=== PATIENT | male | born 1955 | race Caucasian/White ===

== ENCOUNTER 2016-08-27 10:37 | Observation (INO) ==
[2016-08-27] MEDS ORDERED: Aspirin 81 MG TAB.CHEW PO ONE (10:38)
--- NOTE | 2016-08-27 10:39 | Emergency Department Note ---
Disposition Clinical Impression: Chest pain Disposition: Admitted As Inpatient General Adult [facility] - General Chief complaint: ED Chest Pain Stated complaint: chest pressure Time Seen by Provider: 08/27/16 10:38 - Related Data Home Medications Medication Instructions Recorded Confirmed Ibuprofen [Motrin] 400 mg PO BID 08/27/16 08/27/16 Previous Rx's Medication Instructions Recorded Lisinopril [Zestril] 10 mg PO DAILY #30 tablet 08/28/16 Allergies Allergy/AdvReac Type Severity Reaction Status Date / Time No Known Allergies Allergy Verified 04/16/15 10:50 Past Medical History - Past Medical History Medical history: Reports: no medical history - Social History Smoking Status: Former smoker Smokeless Tobacco Status: Yes Alcohol use: Reports: occasionally Drug use: Reports: none Course Vital Signs Temperature 97.9 F 08/27/16 10:38 Pulse Rate 64 08/27/16 10:38 Respiratory Rate 20 08/27/16 10:38 Blood Pressure 187/91 08/27/16 10:38 O2 Sat by Pulse Oximetry 100 08/27/16 10:38 Temperature 97.9 F 08/28/16 14:37 Pulse Rate 76 08/28/16 14:37 Respiratory Rate 14 08/28/16 14:37 Blood Pressure 133/81 08/28/16 14:37 O2 Sat by Pulse Oximetry 94 L 08/28/16 14:37 Oxygen Delivery Oxygen Delivery Nasal Cannula Medical Decision Making - Lab Data Result diagrams: 08/27/16 10:46 08/27/16 10:46 Lab Results 08/27/16 08/27/16 08/27/16 Range/Units 10:46 10:46 10:46 WBC 3.6 L (4.3-11.1) K/mcL RBC 5.06 (4.19-5.50) M/mcL Hgb 15.8 (12.9-16.9) g/dL Hct 46.2 (37.5-50.1) % MCV 91.3 (83.0-100.0) fL MCH 31.2 (28.0-33.3) pg MCHC 34.2 (31.6-35.5) g/dL RDW 12.3 (11.5-14.5) % Plt Count 179 (140-400) K/mcL MPV 9.1 L (9.4-12.4) fL Immature Gran % 0.3 (0-4) % Seg Neutrophils % 56.5 % Lymphocytes % 30.3 % Monocytes % 11.5 % Eosinophils % 1.1 % Basophils % 0.3 % Neutrophils # 2.0 (1.6-8.9) K/mcL Lymphocytes # 1.1 (0.6-4.6) K/mcL Monocytes # 0.4 (0.0-1.3) K/mcL Eosinophils # 0.0 (0.0-0.6) K/mcL Basophils # 0.0 (0.0-0.2) K/mcL Immature Plt Fraction 3.4 (1.1-6.1) % PT 11.1 (9.4-12.1) Seconds INR 1.0 APTT 29.5 (26.0-36.0) Seconds D-Dimer 288 (0-500) ng/mLFEU Sodium 139 (136-145) mEq/L Potassium 3.9 (3.5-4.5) mEq/L Chloride 104 (98-109) mEq/L Carbon Dioxide 26 (19-29) mEq/L BUN 9 (8-26) mg/dL Creatinine 0.89 (0.72-1.25) mg/dL Est GFR ( Amer) > 60 (> 60) Est GFR (Non-Af Amer) > 60 (> 60) BUN/Creatinine Ratio 10 (6-26) Glucose 120 H (70-99) mg/dL Calculated Osmolality 288 (280-300) Calcium 9.7 (8.6-10.8) mg/dL Total Bilirubin 0.5 (0.2-1.2) mg/dL Direct Bilirubin 0.2 (0.0-0.5) mg/dL Indirect Bilirubin 0.3 (0.0-1.2) mg/dL AST 23 (5-34) Units/L ALT 19 (0-55) Units/L Alkaline Phosphatase 54 (38-126) Units/L Troponin I (0-0.03) ng/mL Serum Total Protein 7.6 (6.0-8.3) g/dL Albumin 4.0 (3.5-5.0) g/dL Globulin 3.6 H (2.4-3.5) g/dL Albumin/Globulin Ratio 1.1 (1.1-2.2) 08/27/16 Range/Units 10:46 WBC (4.3-11.1) K/mcL RBC (4.19-5.50) M/mcL Hgb (12.9-16.9) g/dL Hct (37.5-50.1) % MCV (83.0-100.0) fL MCH (28.0-33.3) pg MCHC (31.6-35.5) g/dL RDW (11.5-14.5) % Plt Count (140-400) K/mcL MPV (9.4-12.4) fL Immature Gran % (0-4) % Seg Neutrophils % % Lymphocytes % % Monocytes % % Eosinophils % % Basophils % % Neutrophils # (1.6-8.9) K/mcL Lymphocytes # (0.6-4.6) K/mcL Monocytes # (0.0-1.3) K/mcL Eosinophils # (0.0-0.6) K/mcL Basophils # (0.0-0.2) K/mcL Immature Plt Fraction (1.1-6.1) % PT (9.4-12.1) Seconds INR APTT (26.0-36.0) Seconds D-Dimer (0-500) ng/mLFEU Sodium (136-145) mEq/L Potassium (3.5-4.5) mEq/L Chloride (98-109) mEq/L Carbon Dioxide (19-29) mEq/L BUN (8-26) mg/dL Creatinine (0.72-1.25) mg/dL Est GFR ( Amer) (> 60) Est GFR (Non-Af Amer) (> 60) BUN/Creatinine Ratio (6-26) Glucose (70-99) mg/dL Calculated Osmolality (280-300) Calcium (8.6-10.8) mg/dL Total Bilirubin (0.2-1.2) mg/dL Direct Bilirubin (0.0-0.5) mg/dL Indirect Bilirubin (0.0-1.2) mg/dL AST (5-34) Units/L ALT (0-55) Units/L Alkaline Phosphatase (38-126) Units/L Troponin I 0.01 (0-0.03) ng/mL Serum Total Protein (6.0-8.3) g/dL Albumin (3.5-5.0) g/dL Globulin (2.4-3.5) g/dL Albumin/Globulin Ratio (1.1-2.2) Attestation Statement - Attestation Attestation: I examined this patient and my medical decision-making was reviewed with the [employer] MACHINE SET UP OPERATOR/PA/Advanced Practice Nurse/Resident Physician. I agree with the documented findings, disposition and treatment plan as described except to the extent set forth below. Face to face time provided Patient presents via EMS with reports of chest discomfort. Similar episode experienced 3 days ago which resolved. No previous history of coronary artery disease. Comfortable appearing on exam.
[2016-08-27] MEDS ORDERED: Nitroglycerin 0.4 MG TAB.SUBL SL PRN (10:43)
[2016-08-27 10:53] LABS: Basophils % 0.3 %; Eosinophils % 1.1 %; Hematocrit 46.2 % (37.5-50.1); Hemoglobin 15.8 g/dL (12.9-16.9); Immature Granulocytes % 0.3 % (0-4); Immature Platelets 3.4 % (1.1-6.1); Lymphocytes # 1.1 K/mcL (0.6-4.6); Lymphocytes % 30.3 %; Mean Corpuscular HGB Conc 34.2 g/dL (31.6-35.5); Mean Corpuscular Hemoglobin 31.2 pg (28.0-33.3); Mean Corpuscular Volume 91.3 fL (83.0-100.0); Mean Platelet Volume 9.1 fL (9.4-12.4); Monocytes # 0.4 K/mcL (0.0-1.3); Monocytes % 11.5 %; Platelet Count 179 K/mcL (140-400); Red Blood Count 5.06 M/mcL (4.19-5.50); Red Cell Distribution Width 12.3 % (11.5-14.5); Segmented Neutrophils % 56.5 %
--- NOTE | 2016-08-27 10:55 | Emergency Department Note ---
Disposition Clinical Impression: Chest pain Qualifiers: Chest pain type: unspecified Qualified Code(s): R07.9 - Chest pain, unspecified Disposition: Admitted As Inpatient Condition: Good Referrals: NO,PCP [Primary Care Provider] - Forms: ED Satisfaction Letter Time of Disposition: 12:44 Chest Pain HPI - General Chief Complaint: ED Chest Pain Stated Complaint: chest pressure Time Seen by Provider: 08/27/16 10:38 Source: patient, EMS Mode of arrival: ambulatory Limitations: no limitations Vital Signs Reviewed: Yes Nursing Notes Reviewed: Yes - History of Present Illness HPI Narrative: patient is a 61-year-old male with past medical histor of anxiety. hepresents today due to jolanta pain impression. Patient states that he has had one episode of chest pain on Thursday that went away without any mediation. Today, he was setting up home just prior to arrival about one hourprior to [facility]he began having left-sided pressurein the chest, radiation of the pain and numbness radiating to his left arm. He is also having some mild shortness of breath. Denies any nausea, vomiting, fevers, diarrhea, abdominal pain. He does admit to sweating. Currently rates his pain 4/10. Severity scale (1-10): 4 - Related Data Home Medications Medication Instructions Recorded Confirmed Ibuprofen [Motrin] 400 mg PO BID 08/27/16 08/27/16 Allergies Allergy/AdvReac Type Severity Reaction Status Date / Time No Known Allergies Allergy Verified 04/16/15 10:50 Constitutional: Denies: fever Eyes: Denies: eye pain ENT ED: Denies: ear pain Cardiovascular: Reports: chest pain Respiratory: Reports: dyspnea. Denies: cough, wheezes Gastrointestinal: Denies: abdominal pain, nausea, vomiting, diarrhea Genitourinary: Denies: urgency, dysuria Musculoskeletal: Denies: back pain Integumentary: Denies: rash Neurological: Denies: headache Psychiatric: Denies: anxiety Chest Pain PMH - Past Medical History Medical history: Reports: no medical history - Social History Smoking Status: Former smoker Alcohol use: Reports: occasionally Drug use: Reports: none Physical Exam - General Limitations: no limitations General appearance: alert - Head Head exam: atraumatic, normocephalic, normal inspection - Eye Eye exam: Present: normal appearance, PERRL, EOMI - ENT ENT exam: normal exam, normal oropharynx, mucous membranes moist - Neck Neck exam: Present: normal inspection, full ROM, trachea midline - Chest Chest inspection: Present: normal inspection, symmetric chest wall rise - Respiratory Respiratory exam: Present: normal lung sounds bilaterally - Cardiovascular Cardiovascular exam: Present: regular rate, normal rhythm, normal heart sounds - Abdominal Exam Abdominal exam: Present: soft, Non-Tender. Absent: tenderness, distention, guarding, rebound, rigidity - Extremities Exam Extremities exam: Present: normal inspection, full ROM. Absent: tenderness, pedal edema - Back Exam Back exam: Present: normal inspection, full ROM. Absent: tenderness - Neurological Exam Neurological exam: Present: alert, oriented X3 - Psychiatric Psychiatric exam: Present: normal affect, normal mood - Skin Skin exam: Present: warm, dry, intact, normal color Course Course Narrative: Hypertensive on presentation, otherwise, the rest of the vitals were within normal limits. EKG shows NSR with RBBB. WIll obtain CXR, bloodwork, trop. Patient got aspirin 325mg in squad. Will give nitro for pain. 11:35 patient has received 2 nitroglycerin and is still having chest pain. Patient was also shaking and stated he was very anxious. Patient will be given Ativan for anxiety. Bloodwork was not concerning, troponin negative. EKG showed right bundle leandro block but no acute ST changes. The patient is still having chest pain, we will consider admission for chest pain rule out. Vital Signs Temperature 97.9 F 08/27/16 10:38 Pulse Rate 64 08/27/16 10:38 Respiratory Rate 20 08/27/16 10:38 Blood Pressure 187/91 08/27/16 10:38 O2 Sat by Pulse Oximetry 100 08/27/16 10:38 Temperature 97.9 F 08/27/16 10:38 Pulse Rate 72 08/27/16 11:46 Respiratory Rate 18 08/27/16 11:46 Blood Pressure 157/78 08/27/16 11:46 O2 Sat by Pulse Oximetry 96 08/27/16 11:46 Oxygen Delivery Oxygen Delivery Nasal Cannula Chest Pain - MDM Narrative Medical decision making narrative: Hypertensive on presentation, otherwise, the rest of the vitals were within normal limits. EKG shows NSR with RBBB. WIll obtain CXR, bloodwork, trop. Patient got aspirin 325mg in squad. Will give nitro for pain. 11:35 patient has received 2 nitroglycerin and is still having chest pain. Patient was also shaking and stated he was very anxious. Patient will be given Ativan for anxiety. Bloodwork was not concerning, troponin negative. EKG showed right bundle leandro block but no acute ST changes. The patient is still having chest pain, we will consider admission for chest pain rule out - Medical Records Medical records reviewed: Yes I reviewed the patient's medical records. - Lab Data Lab results reviewed: Yes I reviewed the patient's lab results. Result diagrams: 08/27/16 10:46 08/27/16 10:46 Lab Results 08/27/16 08/27/16 08/27/16 Range/Units 10:46 10:46 10:46 WBC 3.6 L (4.3-11.1) K/mcL RBC 5.06 (4.19-5.50) M/mcL Hgb 15.8 (12.9-16.9) g/dL Hct 46.2 (37.5-50.1) % MCV 91.3 (83.0-100.0) fL MCH 31.2 (28.0-33.3) pg MCHC 34.2 (31.6-35.5) g/dL RDW 12.3 (11.5-14.5) % Plt Count 179 (140-400) K/mcL MPV 9.1 L (9.4-12.4) fL Immature Gran % 0.3 (0-4) % Seg Neutrophils % 56.5 % Lymphocytes % 30.3 % Monocytes % 11.5 % Eosinophils % 1.1 % Basophils % 0.3 % Neutrophils # 2.0 (1.6-8.9) K/mcL Lymphocytes # 1.1 (0.6-4.6) K/mcL Monocytes # 0.4 (0.0-1.3) K/mcL Eosinophils # 0.0 (0.0-0.6) K/mcL Basophils # 0.0 (0.0-0.2) K/mcL Immature Plt Fraction 3.4 (1.1-6.1) % PT 11.1 (9.4-12.1) Seconds INR 1.0 APTT 29.5 (26.0-36.0) Seconds Sodium 139 (136-145) mEq/L Potassium 3.9 (3.5-4.5) mEq/L Chloride 104 (98-109) mEq/L Carbon Dioxide 26 (19-29) mEq/L BUN 9 (8-26) mg/dL Creatinine 0.89 (0.72-1.25) mg/dL Est GFR ( Amer) > 60 (> 60) Est GFR (Non-Af Amer) > 60 (> 60) BUN/Creatinine Ratio 10 (6-26) Glucose 120 H (70-99) mg/dL Calculated Osmolality 288 (280-300) Calcium 9.7 (8.6-10.8) mg/dL Total Bilirubin 0.5 (0.2-1.2) mg/dL Direct Bilirubin 0.2 (0.0-0.5) mg/dL Indirect Bilirubin 0.3 (0.0-1.2) mg/dL AST 23 (5-34) Units/L ALT 19 (0-55) Units/L Alkaline Phosphatase 54 (38-126) Units/L Troponin I (0-0.03) ng/mL Serum Total Protein 7.6 (6.0-8.3) g/dL Albumin 4.0 (3.5-5.0) g/dL Globulin 3.6 H (2.4-3.5) g/dL Albumin/Globulin Ratio 1.1 (1.1-2.2) 08/27/16 Range/Units 10:46 WBC (4.3-11.1) K/mcL RBC (4.19-5.50) M/mcL Hgb (12.9-16.9) g/dL Hct (37.5-50.1) % MCV (83.0-100.0) fL MCH (28.0-33.3) pg MCHC (31.6-35.5) g/dL RDW (11.5-14.5) % Plt Count (140-400) K/mcL MPV (9.4-12.4) fL Immature Gran % (0-4) % Seg Neutrophils % % Lymphocytes % % Monocytes % % Eosinophils % % Basophils % % Neutrophils # (1.6-8.9) K/mcL Lymphocytes # (0.6-4.6) K/mcL Monocytes # (0.0-1.3) K/mcL Eosinophils # (0.0-0.6) K/mcL Basophils # (0.0-0.2) K/mcL Immature Plt Fraction (1.1-6.1) % PT (9.4-12.1) Seconds INR APTT (26.0-36.0) Seconds Sodium (136-145) mEq/L Potassium (3.5-4.5) mEq/L Chloride (98-109) mEq/L Carbon Dioxide (19-29) mEq/L BUN (8-26) mg/dL Creatinine (0.72-1.25) mg/dL Est GFR ( Amer) (> 60) Est GFR (Non-Af Amer) (> 60) BUN/Creatinine Ratio (6-26) Glucose (70-99) mg/dL Calculated Osmolality (280-300) Calcium (8.6-10.8) mg/dL Total Bilirubin (0.2-1.2) mg/dL Direct Bilirubin (0.0-0.5) mg/dL Indirect Bilirubin (0.0-1.2) mg/dL AST (5-34) Units/L ALT (0-55) Units/L Alkaline Phosphatase (38-126) Units/L Troponin I 0.01 (0-0.03) ng/mL Serum Total Protein (6.0-8.3) g/dL Albumin (3.5-5.0) g/dL Globulin (2.4-3.5) g/dL Albumin/Globulin Ratio (1.1-2.2) - Radiology Data Radiology results reviewed: Yes I reviewed the patient's radiology results. Chest X-Ray 08/27/16 10:38 IMPRESSION: No acute process. D/ / Lowell Umaña MD / Lowell Umaña MD Interpreting Provider: Lowell Umaña MD - EKG Data EKG attestation: Yes I reviewed and interpreted this EKG. EKG results narrative: 08/27/16. 10:39. Rate 65, AL 157, QRS 143, QTC 40. Left axis devation. RBBB formation in V1, V2, Heart Score - Score History: Slightly Suspicious EKG: Normal Age: 45-65 Risk Factors: No risk factors known Troponin: Less than normal limit HEART Score Total: 1 S.B.A.Caterina. - S.Manisha.[email or web address] Situation: Demographics, MOA Background: Presenting Complaint, Relevant PMH, Meds, & Allergies Assessment: Vital Signs, Course and respsone to treatment, Exam Concerns, Patient/Family Expectation, Pertinant Lab Results, Outstanding Labs Recommendation: Barrier(s) to disposition, Recommendation based on pending studies, treatments, or consults S.B.A.RMark Report Given to: dr. Musa - requested D-dimer, ordered S.B.A.R. Repor Time: 12:44
[2016-08-27 10:59] LABS: Prothrombin Time 11.1 Seconds (9.4-12.1)
[2016-08-27 11:02] LABS: Activated Partial Thrombo Time 29.5 Seconds (26.0-36.0)
[2016-08-27 11:08] LABS: Alanine Aminotransferase 19 Units/L (0-55); Albumin/Globulin Ratio 1.1 (1.1-2.2); Alkaline Phosphatase 54 Units/L (38-126); Aspartate Amino Transferase 23 Units/L (5-34); BUN/Creatinine Ratio 10 (6-26); Bilirubin,Direct 0.2 mg/dL (0.0-0.5); Bilirubin,Indirect 0.3 mg/dL (0.0-1.2); Bilirubin,Total 0.5 mg/dL (0.2-1.2); Blood Urea Nitrogen 9 mg/dL (8-26); Calcium 9.7 mg/dL (8.6-10.8); Carbon Dioxide 26 mEq/L (19-29); Chloride 104 mEq/L (98-109); Globulin 3.6 g/dL (2.4-3.5); Glucose 120 mg/dL (70-99); Osmolality,Calculated 288 (280-300); Potassium 3.9 mEq/L (3.5-4.5); Sodium 139 mEq/L (136-145); Total Protein 7.6 g/dL (6.0-8.3); eGFR For African Americans > 60 (> 60); eGFR For Non-African Americans > 60 (> 60)
[2016-08-27] MEDS ORDERED: *HR* LORazepam 2 MG/ML VIAL IVP ONE (11:13)
--- NOTE | 2016-08-27 14:46 | Internal Med History&Physical ---
Date of Encounter: 08/27/16 Time of Encounter: 14:43 Assessment and Plan (1) Chest pain Current visit: Yes Status: Acute Patient presents with chest pain although has some typical features has prior Work up in the form of a coronary angiogram 5 years ago that showed no evidence of coronary disease, is reassuring. Will check serial cardiac markers. Continuous telemetry monitoring. His electrocardiogram shows right bundle no ST segment shifts. keep patient on aspirin. Patient is hypertensive on presentation was systolic blood pressure for 160 to 170 and that may be responsible for the pain. We will start the patient on Norvasc. I will also give a small dose of long-acting nitrates. He will receive heparin and famotidine for DVT and peptic ulcer disease prophylaxis respectively. Patient useful code. Qualifiers: Chest pain type: unspecified Qualified Code(s): R07.9 - Chest pain, unspecified Internal Medicine - H&P: HPI Chief complaint: chest pain History of present illness: Mr. Dumont is a 61 year old male with past medical history of anxiety presents to the emergency room today with the main complain of chest pain. Today's ago what patient was working in [employer] he started experiencing with a chest pain associated with shortness of breath forcing him to stop what he is doing followed by pain relief. He had a similar episode today while he was sitting DURING which he experienced a few minutes of chest pain, shortness of breath and lightheadedness especially when he stood up. He was concerned about these episodes so presented to the emergency room. He was often during my interview. 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 Recent denies any worse pain with deep inspiration. No prior history of DVT or pulmonary embolism. No cough or sputum production, fever or chills. No leg pain or tenderness Past Med Surg Social Fam HX - Past Medical History Medical history: no medical history Psychiatric history: no psych history - Social History Smoking Status: Former smoker Smokeless Tobacco Status: No Alcohol use: occasionally Drug use: none - Family History Mother Living Status: Still Living Hx Family Neurologic Disorders: Yes (dementia) Father Living Status: Hx Family Endocrine Disorder: Yes (DM and dialysis) Internal Medicine - H&P: Meds Ibuprofen [Motrin] 400 mg PO BID 08/27/16 [History] Allergies No Known Allergies Allergy (Verified 04/16/15 10:50) All Systems PM: A 10-system review of systems was performed and is negative for pertinent findings except as documented above in the HPI. Review of systems: 10 point review of systems is negative except for HPI. - Constitutional Vitals: Temp Pulse Resp BP Pulse Ox 97.7 F 64 16 171/91 98 08/27/16 14:04 08/27/16 14:04 08/27/16 14:04 08/27/16 14:04 08/27/16 14:04 Exam: Gen.: patient is alert oriented not in distress. Cardiac: Normal S1 S2 no additional sounds or murmurs chest: clear to auscultation abdomen soft nontender nondistended normal bowel sounds lower extremity: lax calf muscles neuro no focal deficit Internal Med - H&P Results - Labs CBC & Chem 7: 08/27/16 10:46 08/27/16 10:46
[2016-08-27] MEDS ORDERED: *HR* LORazepam 1 MG TABLET PO PRN (15:44)
[2016-08-27] MEDS: amLODIPine 5 MG TABLET PO SCH (16:00)
--- NOTE | 2016-08-27 19:24 | Electrocardiograph Report ---
[facility] Test Date: 2016-08-27 Pat Name: Daljit Dumont Department: 104 Room: 3B41 Gender: M Clinical Support Specialist: : 1955 Requested By: Aman Waller Order Number: [id number] Reading MD: Nay Bowens DO Measurements Intervals [facility] Rate: 65 P: 63 IN: 157 QRS: -41 QRSD: 143 T: 51 QT: 390 QTc: 401 Interpretive Statements SINUS RHYTHM MARKED LEFT AXIS DEVIATION RIGHT BUNDLE BRANCH BLOCK Electronically Signed On 08-27-2016 19:22:47 EDT by Nay Bowens DO
[2016-08-27] MEDS: *HR* Heparin 5,000 UNIT/ML VIAL SQ SCH (23:27)
[2016-08-28] MEDS: *HR* Heparin 5,000 UNIT/ML VIAL SQ SCH ×2 (06:05→14:55)
[2016-08-28] MEDS ORDERED: Regadenoson 0.4 MG/5 ML SYRINGE IVP ONE (08:21)
[2016-08-28] MEDS ORDERED: Aspirin Enteric Coated 81 MG Tablet PO SCH (09:00)
[2016-08-28] MEDS ORDERED: Isosorbide MONOnitrate (24 HR) 30 MG TAB.ER.24H PO SCH (09:00)
[2016-08-28] MEDS ORDERED: Famotidine 20 MG TABLET PO SCH (09:00)
--- NOTE | 2016-08-28 11:11 | Nuclear Medicine Stress Report ---
Regadenoson Nuclear Stress Name: Daljit Dumont Date of Study: 08/28/2016 Date: 1955 Ht: 73.0 in Medical Record#: [id number] Age: 61 Wt: 195.0 lb Gender: Male Order #: [id number] Location: [facility] Room: [facility] Supervising Provider: Caty Bob CNP Reading Physician: Lowell Farrell MD, [facility] Ordering Physician: Krissy Corral CNP Primary Care Physician: Blue Stress Technologist: Devaughn Miranda CRT Telescope Operator: Azeem Quinn Indications: Chest Pain, left arm pain Impression: Elevated baseline blood pressure (152/82). Normal hemodynamic responses to pharmacologic stress. No significant ECG changes with regadenoson. Gated LVEF = 70%. Perfusion imaging was negative for ischemia or infarct. Stress Test Summary: Stress Test Type: Pharmacologic Baseline Information: Initial Heart Rate: 75 Blood Pressure: 152/82 Stress Information: Test Terminated Due to (primary): As per protocol Maximum Blood Pressure: 162/80 Maximum Heart Rate: 102 Percent Maximum Heart Rate Achieved: 65 Double Product: [id number] Symptoms: No chest symptoms Nuclear Summary: SPECT myocardial perfusion imaging using [id number] Sestamibi given intravenously was performed at rest and following cardiac stress testing. The resting images were obtained following initial dose of 9.9 mCi. Following stress an additional dose of 32.8 mCi was given at peak exercise or 30 seconds post regadenoson infusion. Findings: Stress Note * Resting ECG demonstrated sinus rhythm with RBBB. * No baseline arrhythmias were noted. * Patient had no chest pain during stress. * No arrhythmias were noted during stress. * No significant ECG changes with regadenoson. Hemodynamic responses * Elevated baseline blood pressure (152/82). Normal hemodynamic responses to pharmacologic stress. Study Quality * Study quality is average. Gated EF % * Gated LVEF = 70%. Left Ventricle * The left ventricle is not dilated. * Normal Segmental Perfusion in rest. * Normal segmental perfusion in stress. TID * No evidence of transient ischemic dilatation. Updated by Lowell Farrell MD, [facility] on 08/28/2016 11:04:44 AM electronically signed on 08/28/2016 11:05:19 AM with status of Final
[2016-08-28] MEDS: amLODIPine 5 MG TABLET PO SCH (11:18)
[2016-08-28 14:38] VITALS: BP 133/81
--- NOTE | 2016-08-28 15:36 | Discharge Summary ---
Date of Encounter: 08/27/16 Time of Encounter: 15:00 - Discharge Diagnosis (1) Chest pain Priority: Primary Status: Acute Comments: Patient was admitted last night for left-sided chest pain and left arm tingling and weakness. Patient complains of left shoulder numbness and when he reached for something in his bathroom his left arm became weak. He reports feeling lightheaded and short of breath at that time. Similar episode in the emergency department. He was hypertensive in the squad on the way to the emergency room he reports his blood pressure was 200s over 50s. He denies diaphoresis or nausea. He states that he has a history of anxiety and feels that it may have exacerbated the chest pain. History showed gated EF 70% and was negative for ischemia or infarct. His troponins have been negative 3 his chest x-ray was negative for any acute cardiopulmonary process. His EKG was normal sinus with a right bundle branch block, rate of 65. His lungs are clear pain is not reproducible. Patient states his primary care physician in about 5 years, however he is established office. We are attempting to make him an appointment to follow-up prior to him being discharged. Qualifiers: Chest pain type: unspecified Qualified Code(s): R07.9 - Chest pain, unspecified (2) Hypertension Priority: Secondary Status: Acute Comments: Patient denies hypertension in the past. I am sending him home on a low-dose of lisinopril, 10mg by mouth daily. He agrees to see his primary care physician if we can get him an appointment soon. Patient has been normotensive now since admission. Qualifiers: Hypertension type: essential hypertension Qualified Code(s): I10 - Essential (primary) hypertension (3) Anxiety Priority: Secondary Status: Chronic Comments: Patient reports long history of anxiety. States that he may have become more anxious, exacerbating his chest pain and weakness yesterday. He said that he became concerned about the instructions for the stress test and again began having chest pain then, in part due to his anxiety. Due to his chronic alcohol abuse, I am hesitant to start him on any medications including an antidepressant. I have discussed with him giving him Vistaril when necessary for home, however I am concerned about the sedation combined with alcohol use. I will suggest that he discuss this with his primary care physician when he follows up. (4) EtOH dependence Priority: Secondary Status: Chronic Comments: Patient admits to drinking at least a 12 pack a day, sometimes more. He is aware of the need to decrease his use and states that he is going to do so. He says last summer he got drunk and fell and broke some ribs and had a pneumothorax. He says this admission was a wakeup call. I asked him how I could help with decreasing his alcohol intake is as if he needs help he will let me know. Qualifiers: Substance use status: uncomplicated Qualified Code(s): F10.20 - Alcohol dependence, uncomplicated - Discharge Medications Prescriptions: Lisinopril [Zestril] 10 mg PO DAILY #30 tablet Home Medications: Ibuprofen [Motrin] 400 mg PO BID 08/27/16 [History] Lisinopril [Zestril] 10 mg PO DAILY #30 tablet 08/28/16 [Rx] Allergies/Adverse Reactions: Allergies No Known Allergies Allergy (Verified 04/16/15 10:50) Procedures/tests Complete & Pending: Procedures Performed prior 72 hours Category Date Time Status NM ant perf SPECT multi [NM] Routine Exams 08/28/16 08:10 Taken SP pharm nuclear stress Routine Y 08/28/16 08:10 Completed Date of admission: 08/27/16 12:48 Primary care physician: PCP NO Discharging clinician: Krissy Corral Anticipated date of discharge: 08/28/16 - Patient Status Disposition: Home, Self-Care Functional capacity at discharge: independent ambulation Overall status at discharge: patient is back to baseline - Discharge Instructions Follow Up With: NO,PCP [Primary Care Provider] - - Diet and Activity Activity: resume usual activities as tolerated Diet: advance to your usual diet Hospital course: Mr. Dumont is a 61 year old male who was admitted from the ED with L chest pain and L arm weakness and numbness. - Time Spent with Patient Total time spent providing and/or coordinating discharge services: - Constitutional Vitals: Temp Pulse Resp BP Pulse Ox 97.9 F 76 14 133/81 94 L 08/28/16 14:37 08/28/16 14:37 08/28/16 14:37 08/28/16 14:37 08/28/16 14:37 General appearance: Present: A&O X 3, pleasant, no acute distress, answers questions appropriately - Head Head exam: Present: normal inspection - Neck Neck exam general surgery: Present: normal inspection. Absent: lymphadenopathy , tenderness - Respiratory Respiratory exam: Present: CTAB. Absent: chest wall tenderness, respiratory distress - Cardiovascular Cardiovascular exam: Present: RRR, +S1, +S2. Absent: diastolic murmur, systolic murmur - GI/Abdominal GI/Abdominal exam: Present: normal bowel sounds, soft. Absent: hepatomegaly, tenderness - Neurological Exam Neurological exam: Present: alert, oriented X3. Absent: no focal deficits, strengths equal and symetr throughout, pronater drift, facial droop, speech deficit
[2016-08-30 18:24] LABS: CK-BB (CK isoenzymes) 0 % (0-0); CK-MB (CK isoenzymes) 0 % (0-4); CK-MM (CK-isoenzymes) 100 % (96-100)
[2016-08-30 18:24] LABS: CK-BB (CK isoenzymes) 0 % (0-0); CK-MB (CK isoenzymes) 0 % (0-4); CK-MM (CK-isoenzymes) 100 % (96-100)
[2016-09-01 07:28] LABS: CK Total (Ck Isoenzymes) 98 U/L (20-200)
[2016-09-01 07:28] LABS: CK Total (Ck Isoenzymes) 87 U/L (20-200)
== END 2016-08-28 16:25 | disposition home or self-care (01) ==
LOC: EMEROO 10:37 → 3BNU 10:37
PROVIDERS: ADMIT Internal Medicine; ATTEND Registered Nurse